=== PATIENT | male | born 1985 | race Caucasian/White ===

== ENCOUNTER 2016-09-05 08:55 | Emergency (ER) | payer OTHER ==
[2016-09-05 09:12] VITALS: BP 125/81
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
== END 2016-09-05 09:46 | disposition home or self-care (01) ==
LOC: UCCORT 08:55
DX: M54.12 Radiculopathy, cervical region (principal); E11.9 Type 2 diabetes mellitus without complications; F41.9 Anxiety disorder, unspecified
CPT/HCPCS: 99211; G0463

== ENCOUNTER 2016-11-09 09:19 | Emergency (ER) | payer SELFPAY ==
[2016-11-09 09:41] VITALS: BP 133/83
--- NOTE | 2016-11-09 09:57 | UC ---
Skin Complaint HPI - HPI Summary HPI Summary: Cat scratch on the left fore arm and right post hand. He is a dm on oral meds. He cleaned them immediately with peroxide. - History of Current Complaint Chief Complaint: UCSkin Time Seen by Provider: 11/09/16 09:45 Stated Complaint: LEFT FOREARM SKIN COMPLAINT WC Hx Obtained From: Patient Onset/Duration: Sudden Onset, Lasting Hours Skin Exposure Onset/Duration: Hours Ago Timing: Constant Onset Severity: Moderate Current Severity: Mild Location: Discrete Character: Pain Aggravating: Touch Alleviating: Nothing Associated Signs & Symptoms: Positive: Tenderness. Negative: Diaphoresis, Weakness, Pallor, Shivering, Fever, Chills, Red Streaks, Joint Swelling - Allergy/Home Medications Allergies/Adverse Reactions: Allergies Allergy/AdvReac Type Severity Reaction Status Date / Time No Known Allergies Allergy Verified 11/09/16 09:29 Review of Systems Skin: Other - cat scratch All Other Systems Reviewed And Are Negative: Yes PMH/Surg Hx/FS Hx/Imm Hx Endocrine History: Diabetes - Surgical History Surgical History: Yes Surgery Procedure, Year, and Place: left ankle surgery - Family History Known Family History: Positive: Hypertension, Diabetes Negative: Cardiac Disease, Respiratory Disease - Social History Alcohol Use: None Substance Use Type: None Smoking Status (MU): Never Smoked Tobacco - Immunization History Most Recent Influenza Vaccination: none Most Recent Tetanus Shot: NOT SURE Physical Exam Triage Information Reviewed: Yes Appearance: Well-Appearing, Well-Nourished, Obese Vital Signs: Initial Vital Signs Temp 97 F 11/09/16 09:31 Pulse 78 11/09/16 09:31 Resp 18 11/09/16 09:31 BP 133/83 11/09/16 09:31 Pulse Ox 97 11/09/16 09:31 Vital Signs Reviewed: Yes ENT Exam: Normal Neck exam: Normal Respiratory Exam: Normal Cardiovascular Exam: Normal Abdominal Exam: Normal Musculoskeletal Exam: Normal Neurological Exam: Normal Psychological Exam: Normal Skin Exam: Other - Left forearm linear scratch without surrounding redness. Right small scratch posterior left hand. both are quite superficial. Course/Dx - Course Course Of Treatment: we discussed signs and symptoms of cellulitis and cat scratch fever. He will antibiotic should he get any worrisome features. We will clean and irrigate here and he needs a tetanus shot. he will return as well if there are any changes. - Differential Diagnoses - Skin Complaint Differential Diagnoses: Cellulitis - Diagnoses Provider Diagnoses: Eleazar cat scratch wounds arms. Discharge - Discharge Plan Condition: Good Disposition: HOME Prescriptions: Amoxicillin/Clavulanate TAB* [Augmentin TAB 875*] 875 mg PO BID #20 tab Patient Education Materials: Abrasion (ED) Referrals: Bertha Brandt MD [Primary Care Provider] - 5 Days
[2016-11-09] MEDS ORDERED: Tetan/Diph/Pertus SYR(Tdap)* 0.5 ML SYR(BOOSTRIX) use SYR IM ONE (10:02)
== END 2016-11-09 10:19 | disposition home or self-care (01) ==
LOC: UCCORT 09:19
DX: S40.812A Abrasion of left upper arm, initial encounter (principal); S40.811A Abrasion of right upper arm, initial encounter; W55.03XA Scratched by cat, initial encounter; E11.9 Type 2 diabetes mellitus without complications; E66.9 Obesity, unspecified
CPT/HCPCS: 90471; 90715; 99212; G0463

== ENCOUNTER 2017-03-10 16:45 | Emergency (ER) | payer OTHER ==
[2017-03-10 17:13] VITALS: BP 135/79
--- NOTE | 2017-03-10 17:20 | UC ---
Throat Pain/Nasal Riki HPI - HPI Summary HPI Summary: Pt c/o sore throat and GUEVARA since this morning. - History of Current Complaint Chief Complaint: UCRespiratory Stated Complaint: SORE THROAT Time Seen by Provider: 03/10/17 17:15 Hx Obtained From: Patient Onset/Duration: Sudden Onset, Lasting Hours, Worse Since - onset Severity: Moderate Cough: None Associated Signs & Symptoms: Positive: Dysphagia Related History: Seasonal Allergies - Allergies/Home Medications Allergies/Adverse Reactions: Allergies Allergy/AdvReac Type Severity Reaction Status Date / Time No Known Allergies Allergy Verified 03/10/17 17:12 Home Medications: Home Medications glipiZIDE TAB* [Glucotrol TAB*] 2.5 mg PO DAILY 03/10/17 [History Confirmed ] PMH/Surg Hx/FS Hx/Imm Hx Previously Healthy: Yes Endocrine History: Diabetes - Surgical History Surgical History: Yes Surgery Procedure, Year, and Place: left ankle surgery - Family History Known Family History: Positive: Hypertension, Diabetes Negative: Cardiac Disease, Respiratory Disease - Social History Occupation: Employed Full-time Lives: With Family Alcohol Use: None Substance Use Type: None Smoking Status (MU): Never Smoked Tobacco Have You Smoked in the Last Year: No - Immunization History Most Recent Influenza Vaccination: none Most Recent Tetanus Shot: NOT SURE Vaccination Up to Date: No Review of Systems Constitutional: Chills, Fatigue Skin: Negative Eyes: Negative ENT: Sore Throat Respiratory: Negative Cardiovascular: Negative Gastrointestinal: Negative Genitourinary: Negative Motor: Negative Neurovascular: Negative Musculoskeletal: Negative Neurological: Headache Psychological: Negative Is Patient Immunocompromised?: No All Other Systems Reviewed And Are Negative: Yes Physical Exam Triage Information Reviewed: Yes Appearance: Ill-Appearing Vital Signs: Initial Vital Signs Temp 98.3 F 03/10/17 17:09 Pulse 98 03/10/17 17:09 Resp 18 03/10/17 17:09 BP 135/79 03/10/17 17:09 Pulse Ox 98 03/10/17 17:09 Vital Signs Reviewed: Yes Eye Exam: Normal ENT: Positive: Pharyngeal erythema, Tonsillar swelling Dental Exam: Normal Neck exam: Other Neck: Positive: Tenderness @ - sub maxillary nodes Respiratory Exam: Normal Cardiovascular Exam: Normal Musculoskeletal Exam: Normal Neurological Exam: Normal Psychological Exam: Normal Skin Exam: Normal Throat Pain/Nasal Course/Dx - Differential Dx/Diagnosis Differential Diagnosis/HQI/PQRI: Influenza, Pharyngitis, Tonsillitis Provider Diagnoses: tonsillitis Discharge - Discharge Plan Condition: Stable Disposition: HOME Prescriptions: Penicillin VK 500 MG TAB(NF) [Penicillin VK 500 mg Tab] 500 mg PO Q8H #30 tab Patient Education Materials: Tonsillitis (ED) Referrals: Bertha Brandt MD [Primary Care Provider] - If Needed
== END 2017-03-10 17:35 | disposition home or self-care (01) ==
LOC: UCCORT 16:45
DX: J03.90 Acute tonsillitis, unspecified (principal); E11.9 Type 2 diabetes mellitus without complications; Z79.84 Long term (current) use of oral hypoglycemic drugs
CPT/HCPCS: 87651; 99212; G0463

== ENCOUNTER 2018-01-06 10:43 | Emergency (ER) | payer OTHER ==
--- NOTE | 2018-01-07 17:39 | UC ---
Discharge - Sign-Out/Discharge Documenting (check all that apply): Post-Discharge Follow Up All imaging exams completed and their final reports reviewed: No Studies - Discharge Plan Disposition: LEFT WITHOUT BEING SEEN Referrals: Bertha Brandt MD [Primary Care Provider] - - Billing Disposition and Condition Disposition: Left Without Being Seen
== END 2018-01-06 11:45 | disposition left against medical advice (07) ==
LOC: UCCORT 10:43
DX: J02.9 Acute pharyngitis, unspecified (principal); Z53.21 Procedure and treatment not carried out due to patient leaving prior to being seen by health care provider

== ENCOUNTER 2018-04-20 17:45 | Emergency (ER) | payer OTHER | END 2018-04-20 18:13 | disposition left against medical advice (07) | LOC: UCCORT 17:45 | DX: J02.9 Acute pharyngitis, unspecified (principal); Z53.21 Procedure and treatment not carried out due to patient leaving prior to being seen by health care provider ==

== ENCOUNTER 2018-11-07 11:26 | Emergency (ER) | payer OTHER ==
[2018-11-07 12:18] VITALS: BP 142/84
--- NOTE | 2018-11-07 12:57 | UC ---
Back Pain HPI - HPI Summary HPI Summary: 33 yo male with acute onset of low back pain while lifting hear a pop radiated down both legs to lower thighs no bowel or bladder dysfunction Hx of similar symptoms in past - History of Current Complaint Chief Complaint: UCBackPain Stated Complaint: BACK PAIN Time Seen by Provider: 11/07/18 12:45 Hx Obtained From: Patient Onset/Duration: Sudden Onset Timing: Constant Severity Initially: Severe Severity Currently: Severe Pain Intensity: 8 Pain Scale Used: 0-10 Numeric Back Pain: Is Diffuse, Radiates To - down both lateral thighs Character: Aching, Throbbing Aggravating Factor(s): Movement, Lifting, Bending Alleviating Factor(s): Rest, OTC Meds - no relief with 600mg motrin Associated Signs And Symptoms: Positive: Negative Full Body (No Head): 1 - pain 2 - radiation 3 - radiation - Allergies/Home Medications Allergies/Adverse Reactions: Allergies Allergy/AdvReac Type Severity Reaction Status Date / Time No Known Allergies Allergy Verified 11/07/18 12:19 Home Medications: Home Medications FLUoxetine CAP* [Prozac CAP*] 1 tab PO DAILY 11/07/18 [History Confirmed ] hydrOXYzine HCL TAB* [Atarax 25 MG TAB*] 1 tab PO DAILY 11/07/18 [History Confirmed 11/07/18] PMH/Surg Hx/FS Hx/Imm Hx Previously Healthy: Yes Endocrine History: Diabetes - Surgical History Surgical History: Yes Surgery Procedure, Year, and Place: left ankle surgery. throat mass removed 2018 x2 - Family History Known Family History: Positive: Hypertension, Diabetes Negative: Cardiac Disease, Respiratory Disease - Social History Alcohol Use: None Substance Use Type: None Smoking Status (MU): Never Smoked Tobacco Have You Smoked in the Last Year: No - Immunization History Most Recent Influenza Vaccination: none Most Recent Tetanus Shot: NOT SURE Vaccination Up to Date: No Review of Systems All Other Systems Reviewed And Are Negative: Yes Constitutional: Positive: Negative Skin: Positive: Negative Eyes: Positive: Negative ENT: Positive: Negative Respiratory: Positive: Negative Cardiovascular: Positive: Negative Gastrointestinal: Positive: Negative Genitourinary: Positive: Negative Motor: Positive: Negative Neurovascular: Positive: Negative Musculoskeletal: Positive: Other: - lower back pain Neurological: Positive: Negative Psychological: Positive: Negative Physical Exam Triage Information Reviewed: Yes Appearance: Well-Appearing, Well-Nourished, Pain Distress Vital Signs: Initial Vital Signs Temp 97.2 F 11/07/18 12:12 Pulse 87 11/07/18 12:12 Resp 16 11/07/18 12:12 BP 142/84 11/07/18 12:12 Pulse Ox 99 11/07/18 12:12 Vital Signs Reviewed: Yes Eyes: Positive: Conjunctiva Clear ENT: Positive: Hearing grossly normal. Negative: Nasal congestion, Nasal drainage, Trismus, Muffled voice, Hoarse voice, Dental tenderness Neck: Positive: Supple, Nontender Respiratory: Positive: Lungs clear, Normal breath sounds, No respiratory distress, No accessory muscle use Cardiovascular: Positive: RRR, No Murmur Abdomen Description: Positive: Nontender, Soft Bowel Sounds: Positive: Present Musculoskeletal: Positive: ROM Intact, No Edema Neurological: Positive: Alert Psychological Exam: Normal Skin Exam: Normal - Additional Comments tender mid line lumbar spine as well as paraspinous tenderness -SLR Limited ROM back Diagnostics - Radiology No standard instances Radiology Interpretation Completed By: Radiologist Summary of Radiographic Findings: mild DDD L4-5 Back Pain Course/Dx - Differential Dx/Diagnosis Provider Diagnosis: Acute low back pain, Degeneration of L4-L5 intervertebral disc Discharge - Sign-Out/Discharge Documenting (check all that apply): Patient Departure All imaging exams completed and their final reports reviewed: Yes - Discharge Plan Condition: Stable Disposition: HOME Prescriptions: Cyclobenzaprine TAB* [Flexeril TAB*] 5 mg PO TID PRN #21 tab PRN Reason: Spasms HYDROcodone/ACETAMIN 5-325 MG* [Vantage 5-325 TAB*] 1 tab PO Q4H PRN #6 tab MDD 6 PRN Reason: Pain Naproxen [Naproxen 500 mg tab] 500 mg PO BID PRN #20 tablet PRN Reason: Pain Patient Education Materials: Acute Low Back Pain (ED), Degenerative Disc Disease (ED) Forms: *Work Release Referrals: Elena Hickman [Primary Care Provider] - 5 Days (if not better) Additional Instructions: XR showed mild degenerative disc disease L4-5 don't take muscle relaxant or narcotic and work or drive both may cause drowsiness - Billing Disposition and Condition Condition: STABLE Disposition: Home
== END 2018-11-07 13:54 | disposition home or self-care (01) ==
LOC: UCCORT 11:26
DX: M51.37 Other intervertebral disc degeneration, lumbosacral region (principal); E11.9 Type 2 diabetes mellitus without complications
CPT/HCPCS: 72110; 99212; G0463

== ENCOUNTER 2019-01-25 10:44 | Emergency (ER) | payer OTHER ==
--- NOTE | 2019-01-25 11:38 | UC ---
Abdominal Pain Male HPI - HPI Summary HPI Summary: 33 yo diabetic, uses weekly injections of Trulicity in combination with metformin and Januvia, comes in today with 2 days of progressive abdominal pain and bloating. No vomiting, soft stool this morning. No appetite and has not eaten since yesterday, fingerstick is 124 on presentation today. He also has nasal congestion and sore throat, no fever. Hx of some reflux, uses omeprazole on occasion, but has not been a problem currently. - History of Current Complaint Chief Complaint: UCGeneralIllness Stated Complaint: ABDOMINAL PAIN X2 DAYS Time Seen by Provider: 01/25/19 11:09 Hx Obtained From: Patient Onset/Duration: Gradual Onset, Lasting Days - 2 Severity Initially: Moderate Severity Currently: Moderate Pain Intensity: 8 Location: Diffuse Radiates: No Character: Cramping, Dull Aggravating Factor(s): Food, Movement Alleviating Factor(s): Rest Associated Signs And Symptoms: Negative: Diaphoresis, Fever, Blood in Stool, Urinary Symptoms, Vomiting, Diarrhea - Risk Factors Testicular Torsion: Negative Cardiac Risk Factors: Diabetes - Allergies/Home Medications Allergies/Adverse Reactions: Allergies Allergy/AdvReac Type Severity Reaction Status Date / Time No Known Allergies Allergy Verified 01/25/19 11:17 Home Medications: Home Medications Bupropion XL* [Wellbutrin XL *] 150 mg PO DAILY 01/25/19 [History Confirmed 03/05] Dulaglutide [Trulicity] 0.75 mg SQ 01/25/19 [History] PMH/Surg Hx/FS Hx/Imm Hx Endocrine History: Diabetes, Other - obesity GI/ History: Gastroesophageal Reflux - Surgical History Surgical History: Yes Surgery Procedure, Year, and Place: left ankle surgery. throat mass removed 2018 x2 - Family History Known Family History: Positive: Hypertension, Diabetes Negative: Cardiac Disease, Respiratory Disease - Social History Occupation: Employed Full-time Lives: With Family Alcohol Use: None Substance Use Type: None Smoking Status (MU): Never Smoked Tobacco Have You Smoked in the Last Year: No - Immunization History Most Recent Influenza Vaccination: none Most Recent Tetanus Shot: NOT SURE Vaccination Up to Date: No Review of Systems All Other Systems Reviewed And Are Negative: Yes Constitutional: Positive: Fatigue Skin: Positive: Negative Eyes: Positive: Negative ENT: Positive: Sore Throat, Sinus Congestion Respiratory: Positive: Negative. Negative: Shortness Of Breath, Cough Cardiovascular: Negative: Palpitations, Chest Pain Gastrointestinal: Positive: Abdominal Pain Genitourinary: Negative: Dysuria, Hematuria, Frequency, Urgency Motor: Positive: Negative Neurovascular: Positive: Negative Musculoskeletal: Positive: Negative Neurological: Positive: Negative Psychological: Positive: Anxious Is Patient Immunocompromised?: No Physical Exam Triage Information Reviewed: Yes Appearance: Ill-Appearing, Pain Distress - moderate, Obese Vital Signs: Initial Vital Signs Temp 98.5 F 01/25/19 11:11 Pulse 90 01/25/19 11:11 Resp 16 01/25/19 11:11 BP 135/80 01/25/19 11:11 Pulse Ox 99 01/25/19 11:11 Eyes: Positive: Conjunctiva Clear ENT: Positive: Pharynx normal, TMs normal Neck: Positive: Supple, Nontender, No Lymphadenopathy Respiratory: Positive: Lungs clear, Normal breath sounds, No respiratory distress Cardiovascular: Positive: RRR, No Murmur Abdomen Description: Positive: Soft, Distended, Guarding - throughout abdomen.. Negative: CVA Tenderness (R), CVA Tenderness (L) Bowel Sounds: Positive: Present Musculoskeletal Exam: Normal Neurological Exam: Normal Psychological Exam: Normal Skin Exam: Normal Diagnostics - Laboratory Lab Results: Fingerstick reading 124 at 11:10 UA negative Abd Pain Male Course/Dx - Course Course Of Treatment: Transferred to ER by ambulance for assessment. - Differential Dx/Clinical Impression Differential Diagnosis/HQI/PQRI: Gall Bladder Disease, Renal Colic, Other - appendicitis Provider Diagnosis: Abdominal pain - Physician Notification/Consults Discussed Patient Care With: Mateo Ferrera Time Discussed With Above Provider: 11:45 Discharge ED - Sign-Out/Discharge Documenting (check all that apply): Patient Departure All imaging exams completed and their final reports reviewed: No Studies - Discharge Plan Condition: Stable Disposition: TRANS HIGHER LVL OF CARE FAC Referrals: Elena Hickman [Primary Care Provider] - - Billing Disposition and Condition Condition: STABLE Disposition: Trans Higher Lvl of Care Fac
[2019-01-25 11:58] VITALS: BP 125/67
[2019-01-25] MEDS ORDERED: D5W 1/2 NS 1000 ML BAG* 1,000 ML IV SCH (12:00)
== END 2019-01-25 11:59 | disposition short-term general hospital (02) ==
LOC: UCCORT 10:44
DX: R10.9 Unspecified abdominal pain (principal); R53.83 Other fatigue; J02.9 Acute pharyngitis, unspecified; R09.81 Nasal congestion; E11.9 Type 2 diabetes mellitus without complications; E66.9 Obesity, unspecified; R14.0 Abdominal distension (gaseous); K21.9 Gastro-esophageal reflux disease without esophagitis; Z79.899 Other long term (current) drug therapy; Z79.4 Long term (current) use of insulin
CPT/HCPCS: 81003; 99213; G0463

== ENCOUNTER 2019-06-29 17:05 | Emergency (ER) | payer OTHER ==
[2019-06-29 17:37] VITALS: BP 143/78
--- NOTE | 2019-06-29 17:45 | UC ---
Throat Pain/Nasal Riki HPI - HPI Summary HPI Summary: Intermittent pharyngitis x3 days. denies fever. Taking ibuprofen prn; last dose today 1030. nothing makes it better/ swallowing wors.e - History of Current Complaint Chief Complaint: UCRespiratory Stated Complaint: SORE THROAT Time Seen by Provider: 06/29/19 17:32 Hx Obtained From: Patient Pain Intensity: 7 Pain Scale Used: 0-10 Numeric - Allergies/Home Medications Allergies/Adverse Reactions: Allergies Allergy/AdvReac Type Severity Reaction Status Date / Time No Known Allergies Allergy Verified 06/29/19 17:34 Home Medications: Home Medications metFORMIN* [Glucophage 500 MG TAB *] 750 mg PO QPM 03/30/16 [History Confirmed 06/29/19] Fexofenadine (NF) [Courtney 180 (NF)] 180 mg PO DAILY PRN 08/23/16 [History Confirmed 06/29/19] glipiZIDE TAB* [Glucotrol TAB*] 10 mg PO BID 03/10/17 [History Confirmed ] FLUoxetine CAP* [Prozac CAP*] 1 tab PO DAILY 11/07/18 [History Confirmed ] hydrOXYzine HCL TAB* [Atarax 25 MG TAB*] 1 tab PO DAILY 11/07/18 [History Confirmed 06/29/19] Bupropion XL* [Wellbutrin XL *] 150 mg PO DAILY 01/25/19 [History Confirmed ] Dextromethorphan/Benzocaine [Cepacol Sorethroat-Cough Emily] 1 each PO Q2HR PRN # 90 lozenge 06/29/19 [Rx] Ertugliflozin Pidolate [Steglatro] 1 tab QAM 06/29/19 [History Confirmed ] Pioglitazone TAB* [Actos TAB*] 1 tab DAILY 06/29/19 [History Confirmed 06/29/19] PMH/Surg Hx/FS Hx/Imm Hx - Additional Past Medical History Additional PMH: no chronic illness Previously Healthy: Yes - Surgical History Surgical History: Yes Surgery Procedure, Year, and Place: left ankle surgery. throat mass removed 2017 x2 - Family History Known Family History: Positive: Hypertension, Diabetes Negative: Cardiac Disease, Respiratory Disease - Social History Alcohol Use: None Substance Use Type: None Smoking Status (MU): Never Smoked Tobacco Have You Smoked in the Last Year: No - Immunization History Most Recent Influenza Vaccination: none Most Recent Tetanus Shot: NOT SURE Vaccination Up to Date: No Review of Systems All Other Systems Reviewed And Are Negative: Yes Constitutional: Positive: Fever. Negative: Chills, Fatigue Skin: Negative: Rash Eyes: Negative: Eye Redness ENT: Positive: Sore Throat. Negative: Ear Ache, Nasal Discharge, Sinus Congestion Respiratory: Negative: Shortness Of Breath, Cough Neurological/Mental Status: Negative: Headache Physical Exam Triage Information Reviewed: Yes Appearance: Well-Appearing Vital Signs: Initial Vital Signs Temp 97.6 F 06/29/19 17:34 Pulse 85 06/29/19 17:34 Resp 16 06/29/19 17:34 BP 143/78 06/29/19 17:34 Pulse Ox 100 06/29/19 17:34 Vital Signs Reviewed: Yes Eyes: Positive: Conjunctiva Clear ENT: Positive: Pharyngeal erythema, TMs normal, Uvula midline Neck: Positive: Supple, Nontender, No Lymphadenopathy Respiratory Exam: Normal Cardiovascular Exam: Normal Throat Pain/Nasal Course/Dx - Course Course Of Treatment: Phayringitis w good vitals in a health male. we discussed ways to manage pain. viral etiology. rapid strep neg. - Differential Dx/Diagnosis Differential Diagnosis/HQI/PQRI: Pharyngitis, URI, Other Provider Diagnosis: Pharyngitis Discharge ED - Sign-Out/Discharge Documenting (check all that apply): Patient Departure All imaging exams completed and their final reports reviewed: No Studies - Discharge Plan Condition: Good Disposition: HOME Prescriptions: Dextromethorphan/Benzocaine [Cepacol Sorethroat-Cough Emily] 1 each PO Q2HR PRN # 90 lozenge PRN Reason: Sore Throat Patient Education Materials: Pharyngitis (ED) Forms: *Work Release Referrals: Evelyn Araya MD [Primary Care Provider] - Additional Instructions: if worsening please return. based on today's test you do not have a bacterial infection or strep. - Billing Disposition and Condition Condition: GOOD Disposition: Home
== END 2019-06-29 18:04 | disposition home or self-care (01) ==
LOC: UCCORT 17:05
DX: J02.9 Acute pharyngitis, unspecified (principal)
CPT/HCPCS: 87651; 99212; G0463